=== PATIENT | male | born 1950 | race Caucasian/White ===

== ENCOUNTER 2021-12-31 01:18 | Inpatient (IN) | payer BC ==
[~2021-12-31] VITALS: Ht 165.1 cm; Wt 66.7 kg
[2021-12-31] MEDS ORDERED: PROCHLORPERAZINE EDISYLATE 10 MG/2 ML VIAL IVP ONE (04:00)
[2021-12-31] MEDS ORDERED: NACL 0.9% 1,000 ML IV ONE ×2 (04:00→05:30)
[2021-12-31] MEDS ORDERED: MORPHINE 2 MG/ML INJ. SYRINGE IVP ONE (04:00)
--- NOTE | 2021-12-31 04:20 | NUR ---
Patient wheeled to bed 7 for evaluation and treatment
[2021-12-31 04:47] LABS: HEMOGLOBIN 10.4 g/dL (14.0-18.0); MEAN CORPUSCULAR HEMOGLOBIN 30 pg (27-31); MEAN CORPUSCULAR HGB CONC 35 % (32-36); MEAN CORPUSCULAR VOLUME 85 fL (79.0-98.0); RED BLOOD CELL COUNT(AUTO) 3.51 MIL/uL (4.2-6.2); RED CELL DISTRIBUTION WIDTH 17.8 % (9.0-15.0)
[2021-12-31 05:07] LABS: CALCIUM 7.2 mg/dL (8.4-11.0); CREATININE 1.53 mg/dL (0.55-1.30)
[2021-12-31 05:12] LABS: ALBUMIN 2.5 g/dL (3.4-4.8); TOTAL BILIRUBIN 2.4 mg/dL (0.0-1.0)
[2021-12-31 05:25] LABS: POTASSIUM 2.5 mmol/L (3.5-5.1)
[2021-12-31 05:27] LABS: PLATELET COUNT (AUTO) 36 K/uL (130-430); WHITE BLOOD COUNT (AUTO) 1.8 K/uL (4.8-10.8)
[2021-12-31] MEDS ORDERED: POTASSIUM CHLORIDE 20 MEQ TAB.PRT.SR PO ONE (05:30)
[2021-12-31] MEDS ORDERED: POTASSIUM CHLORIDE 10 MEQ in NACL 0.9% 1,000 ML IV SCH ×7 (05:30→07:15)
--- NOTE | 2021-12-31 05:30 | NUR ---
IV ACCESS PLACED LT FA G20, DUE PAIN MEDS AND IV COMPAZINE GIVEN N/S 1L BOLUS RUNNING.
--- NOTE | 2021-12-31 05:45 | NUR ---
0545 CRITICAL LAB HYPONATREMIA AND HYPOKALEMIA PANCYTOPENIA MD AWARE DUE ORDERS GIVEN PENDING IV K-RIDER,AFTER NS BOLUS.
[2021-12-31] MEDS ORDERED: metroNIDAZOLE 500 mg/NS 100 ML IV ONE (06:30)
[2021-12-31] MEDS ORDERED: cefTRIAXone 2 GM VIAL ONE (06:45)
--- NOTE | 2021-12-31 06:50 | NUR ---
IVPB ROCEPHIN RUNNING AND NS/1L IV BOLUS
[2021-12-31 07:25] LABS: BILIRUBIN,URINE NEGATIVE (NEGATIVE); BLOOD, URINE 3+ (NEGATIVE); CLARITY/URINE CLEAR (CLEAR); COLOR,URINE YELLOW (YELLOW); GLUCOSE,URINE NEGATIVE (NEGATIVE); KETONES,URINE NEGATIVE (NEGATIVE); LEUKOCYTE ESTERASE ,URINE NEGATIVE (NEGATIVE); NITRITE, URINE NEGATIVE (NEGATIVE); PROTEIN URINE TRACE (NEGATIVE)
--- NOTE | 2021-12-31 07:30 | NUR ---
ASSUMED CARE OF PT AT THIS TIME
[2021-12-31 07:40] LABS: BASOPHILS % (AUTO) 0.5 % (0.0-2.0); EOSINOPHILS % (AUTO) 0.2 % (0.0-4.0); LYMPHOCYTES % (AUTO) 22.7 % (20.5-51.5); MONOCYTES % (AUTO) 70.6 % (1.7-9.3); NEUTROPHILS # (AUTO) 0.1 K/uL (1.8-7.7)
[2021-12-31 07:41] LABS: BAND % (MANUAL) 0 % (0-6); LYMPHOCYTES # (AUTO) 0.4 K/uL (1.0-5.5); LYMPHOCYTES % (MANUAL) 52 % (20-46); MONOCYTES # (AUTO) 1.3 K/uL (0.0-1.0)
[2021-12-31 07:42] LABS: ATYPICAL LYMPHOCYTES % 6 % (0-0); BASOPHILS % (MANUAL) 4 % (0-2); EOSINOPHILS % (MANUAL) 1 % (0-7); METAMYELOCYTES % 0 % (0-0); MONOCYTES % (MANUAL) 25 % (0-11); MYELOCYTES % 0 % (0-0); PROMYELOCYTES % 0 % (0-0)
[2021-12-31 08:09] LABS: BACTERIA,URINE None Seen /HPF (None Seen); HYALINE CASTS, URINE 0-10 /LPF (None Seen); WBC,URINE NONE SEEN /HPF (0-3)
--- NOTE | 2021-12-31 08:26 | NUR ---
PT RESTING COMFORTABLY. VSS. NO DISTRES NOTED. AWAITING TELE BED
--- NOTE | 2021-12-31 09:30 | NUR ---
AWAITING K ANGELITO TO COME FROM PHARMACY. PHARMACY MADE AWARE
[2021-12-31] MEDS: NACL 0.9% 1,000 ML IV SCH ×2 (09:42→22:28)
--- NOTE | 2021-12-31 10:12 | NUR ---
NS WITH 10MEQ K STARTED AT 100ML/HR. MAINTENANCE FLUIDS HELD AT THIS TIME.
--- NOTE | 2021-12-31 10:31 | NUR ---
NO CHANGE IN CONDITION. VSS. RESP EVEN AND UNLABORED. C/O LOWER BACK PAIN 5/10 (CHRONIC). REPOSITIONED FOR COMFORT. AWAITING TELE BED. WILL CONT TO MONITOR
[2021-12-31] MEDS ORDERED: LORazepam 2 MG/ML VIAL IVP PRN (11:00)
[2021-12-31] MEDS ORDERED: BANANA BAG 1 EA, FOLIC ACID 1 MG, THIAMINE HCL 100 MG, MAGNESIUM SULFATE 1 GM, MVI 10 M... IV SCH ×5 (11:00)
[2021-12-31] MEDS ORDERED: FOLIC ACID 1 MG, MVI 10 ML in NACL 0.9% 1,000 ML IV ONE (11:45)
[2021-12-31] MEDS ORDERED: THIAMINE HCL 100 MG, MAGNESIUM SULFATE 1 GM in NS 100 ML IV ONE (11:45)
--- NOTE | 2021-12-31 12:55 | NUR ---
PT RESTING. REPORTS LOWER BACK PAIN AND REQUESTING PAIN MEDICATION. HOME MEDS OBTAINED AND WILL ENTER IN CHART AND CALL ADMITTING MD. VSS. RESP EVEN AND UNLABORED. WILL CONT TO MONITOR
[2021-12-31] MEDS ORDERED: PRO40 PO (12:59)
--- NOTE | 2021-12-31 13:00 | NUR ---
AWAITING BANANA BAG FROM PHARMACY, PHARMACY AWARE
[2021-12-31] MEDS ORDERED: NOR10 PO (13:03)
[2021-12-31] MEDS ORDERED: ATEN50TA PO (13:03)
[2021-12-31] MEDS ORDERED: BACL10TA PO (13:03)
[2021-12-31] MEDS ORDERED: GABA-529 PO (13:03)
[2021-12-31] MEDS ORDERED: CARB100T13 PO (13:03)
--- NOTE | 2021-12-31 15:11 | NUR ---
PT IN BED RESTING. C/O CHRONIC LOWER BACK PAIN 02/27. CALL OUT FOR ADMITTING MD, AWAITING RETURN CALL. REPOSITIONED FOR COMFORT. VSS. RESP EVEN AND UNLABORED. AWAITING TELE BED. WILL CONT TO MERCEDES
[2021-12-31] MEDS: metroNIDAZOLE 500 mg/NS 100 ML IV SCH (15:47)
[2021-12-31] MEDS: chlordiazePOXIDE HCL 25 MG CAPSULE PO SCH ×2 (15:52→22:25)
--- NOTE | 2021-12-31 17:35 | NUR ---
PT RESTING COMFORTABLY. AT BEDSIDE. NO DISTRESS NOTED. RESP EVEN AND UNLABORED. AWAITING TELE BED. WILL CONT TO MONITOR
[2021-12-31] MEDS ORDERED: cefTRIAXone 1 GM VIAL ONE (22:22)
[2021-12-31] MEDS: cefTRIAXone 1 GM in D5W 50 ML IV SCH (22:25)
--- NOTE | 2021-12-31 23:55 | NUR ---
NOTES; CALLED DR. TORRES -called and notified Dr. Torres regarding pt fell couple times recently on 12/31 & 12/30 on rt hip and left leg pain 9/10 redness and (only pain upon activity on rt elbow redness) noted, asked for pain mgmt. MD ordered Tylenol 650mg po q 4 hrs prn for control pain and no CXR for right hip, rt elbow, or rt leg per md. Informed MD that requested Martinez bc her spouse is in pain upon activity. No martinez per md. IVF D5 1/2NS @ 100ml/hr and K-Bonifacio 40mEq x1 and cardiac diet per .
[2022-01-01] VITALS (7 sets, daily range): BP systolic 107–131
[2022-01-01] MEDS: D5/0.45 NS 1,000 ML IV SCH ×2 (00:23→12:58)
--- NOTE | 2022-01-01 01:00 | NUR ---
ADMISSION NOTES; -Arrived from ER dept via a gurney to Room 124-A, inpt telemetry dx electrolyte imbalance. Pt is a/ox 4, weakness noted. Pt fell recently on 12/31/21. Rt side of body (rt elbow 3/10, (rt hip, and rt legs pain 9/10 sharp)- redness but intact noted. Saline rocio on rt hand #22 and left f/a #20 both patent,no s/s any infiltration noted. Spouse is at bedside. VS 98.1, 18, 131/67, 98, t3pkt=35% r/a. Generalized weakness noted. Urinal at bedside. Discussed poc,all safety measures, pain mgmt, not get out of bed to use call light for assistance, pt and spouse verbalized understanding. Pt is a/o x4 and able to use call light. Fall precaution in place. Side rails x2. Call light w/in reach. Cont to monitor pt.
--- NOTE | 2022-01-01 01:25 | NUR ---
NOTES; TOOK ALL BELONGINGS HOME.
[2022-01-01] MEDS ORDERED: metroNIDAZOLE 500 mg/NS 200 ML IV ONE (01:45)
--- NOTE | 2022-01-01 01:58 | NUR ---
NOTES; K-RIDER BAG LEAKED, REPLACED NEW BAG OF K-RIDER 40MEG KCL BAG
[2022-01-01] MEDS ORDERED: KCL 40 mEq in 100 mL (PREMIX) 100 ML IV ONE ×3 (01:59→11:30)
[2022-01-01] MEDS: metroNIDAZOLE 500 mg/NS 100 ML IV SCH ×3 (02:03→17:42)
--- NOTE | 2022-01-01 02:05 | NUR ---
NOTES; -INFUSING FLAGY 500MG IVPB LATE D/T INFUSING K-RIDER
--- NOTE | 2022-01-01 02:05 | NUR ---
ROUNDS; -Pt is asleep. No s/s chest pain,sob,pain,or any acute distress noted. IVF infusing well no s/s any infiltration and K-rider infusing. All safety measure in place. Call light w/in reach. Cont to monitor pt.
--- NOTE | 2022-01-01 04:43 | NUR ---
CONSULTATION PAGED/CALLED Reason for Consultation: DIARRHEA Person Who was Notified: JACQUI Consulting Physician: JOAQUIN MORA IS MINILAB OPERATOR System Support Technician Specialty: Ordering Physician: MALORIE
--- NOTE | 2022-01-01 05:07 | NUR ---
CONSULTATION PAGED/CALLED Reason for Consultation: PANCYTOPENIA Person Who was Notified: JOSSUE Consulting Physician: WENDY Surfboard Maker Specialty: Ordering Physician: MALORIE
--- NOTE | 2022-01-01 05:09 | NUR ---
ROUNDS; -Pt awoke, felt pain upon activity. Pt is wet, changed gown, linen, and sheet, now pt is cleaned and dry. Applied diaper upon pt's request. Pt is eating pudding now. IVF D5 1/2 NS @ 100ml/hr infusing well, no s/s any infiltration on rt hand noted. All safety measure in place. Call light w/in reach. Cont to monitor pt.
[2022-01-01 06:21] LABS: BASOPHILS % (AUTO) 0.9 % (0.0-2.0); EOSINOPHILS % (AUTO) 0.1 % (0.0-4.0); HEMATOCRIT 26.3 % (36-54); HEMOGLOBIN 9.5 g/dL (14.0-18.0); LYMPHOCYTES # (AUTO) 0.7 K/uL (1.0-5.5); LYMPHOCYTES % (AUTO) 48.3 % (20.5-51.5); MEAN CORPUSCULAR HEMOGLOBIN 31 pg (27-31); MEAN CORPUSCULAR HGB CONC 36 % (32-36); MEAN CORPUSCULAR VOLUME 87 fL (79.0-98.0); MONOCYTES # (AUTO) 0.7 K/uL (0.0-1.0); MONOCYTES % (AUTO) 48.3 % (1.7-9.3); RED BLOOD CELL COUNT(AUTO) 3.04 MIL/uL (4.2-6.2); RED CELL DISTRIBUTION WIDTH 17.5 % (9.0-15.0)
--- NOTE | 2022-01-01 06:34 | NUR ---
CLOSING NOTES; -Pt is asleep. NO s/s any pain,sob,or any acute distress noted. IV sites both rt hand and left f/a patent drsg cdi. Fall precaution in place. Bed alarmed, Side rails x2. Call light w/in reach. Will endorse to next nurse to cont care.
[2022-01-01 07:41] LABS: ALBUMIN 1.9 g/dL (3.4-4.8); CREATININE 0.57 mg/dL (0.55-1.30); TOTAL BILIRUBIN 1.9 mg/dL (0.0-1.0)
[2022-01-01 07:47] LABS: CALCIUM 6.7 mg/dL (8.4-11.0); POTASSIUM 2.9 mmol/L (3.5-5.1)
[2022-01-01 08:29] LABS: PLATELET COUNT (AUTO) 28 K/uL (130-430); WHITE BLOOD COUNT (AUTO) 1.4 K/uL (4.8-10.8)
--- NOTE | 2022-01-01 09:00 | NUR ---
CRITICAL LAB: from Laboratory called with critical lab value K level 2.9,Ca 6.7,WBC 1.4,platlet 28. neutro 0.0,Medical record number and patient name verified. Read back of values done. notified of value. lab orders given at this time.
[2022-01-01] MEDS: chlordiazePOXIDE HCL 25 MG CAPSULE PO SCH ×3 (10:03→20:44)
[2022-01-01] MEDS ORDERED: CALCIUM GLUCONATE 1 GM/10 ML VIAL IVP ONE (10:45)
[2022-01-01] MEDS ORDERED: CALCIUM GLUCONATE 1 GM in NS 100 ML IV ONE (11:00)
[2022-01-01 11:54] LABS: NEUTROPHILS % (AUTO) 2.4 % (40.0-70.0)
[2022-01-01] MEDS ORDERED: FOLIC ACID 1 MG, MVI 10 ML in NACL 0.9% 1,000 ML IV SCH (12:00)
[2022-01-01] MEDS ORDERED: THIAMINE HCL 100 MG, MAGNESIUM SULFATE 1 GM in NS 100 ML IV SCH (12:00)
--- NOTE | 2022-01-01 19:30 | NUR ---
PM ASSESSMENT; -Pt is a/ox4, resting in bed. Pt denies any chest pain,pain,sob,or any acute distress. IV site on rt hand #22 and left f/a #20 both patent,no s/s any infiltration noted. Generalized weakness noted. Urinal at bedside. Discussed poc,all safety measures, pain mgmt, not get out of bed to use call light for assistance, pt verbalized understanding. Pt is a/o x4 and able to use call light. Fall precaution in place. Side rails x2. Call light w/in reach. Cont to monitor pt.
[2022-01-01] MEDS: ACETAMINOPHEN 325 MG TABLET PO PRN (20:44)
[2022-01-01 20:52] LABS: BILIRUBIN,DIRECT 1.3 mg/dL (0.0-0.3); TOTAL BILIRUBIN 1.9 mg/dL (0.0-1.0); URIC ACID 1.4 mg/dL (2.4-7.0)
[2022-01-01] MEDS: cefTRIAXone 1 GM in D5W 50 ML IV SCH (22:31)
--- NOTE | 2022-01-01 22:31 | NUR ---
ROUNDS; -Pt is asleep. No s/s chest pain,sob,pain,or any acute distress noted. Infusing Rocephin ivpb late d/t not available at that time. Banana bag is still infusing. Both IV site patent no s/s any infiltration noted. Bed alarmed. Side rails x3, All safety measure in place. Call light w/in reach. Cont to monitor pt.
[2022-01-02] MEDS ORDERED: DIPHENOXYLATE HCL/ATROP SULF 2.5 MG TAB PO ONE (00:15)
[2022-01-02 00:45] VITALS: BP_SYST 110
[2022-01-02] MEDS: D5/0.45 NS 1,000 ML IV SCH ×2 (00:52→09:41)
--- NOTE | 2022-01-02 00:52 | NUR ---
ROUNDS; -Pt awakes, and gave Lomotil po upon pt's request. Pt didn't have diarrhea but wants to have antidiarrhea med to prevent diarrhea. Pt denies any pain,sob,or any acute distress. Infusing D5 1/2NS @ 100ml/hr. Banana bag is completed. Both IV site patent no s/s any infiltration noted. Bed alarmed. Side rails x3, All safety measure in place. Call light w/in reach. Cont to monitor pt.
[2022-01-02] MEDS: metroNIDAZOLE 500 mg/NS 100 ML IV SCH ×3 (02:07→17:52)
--- NOTE | 2022-01-02 02:07 | NUR ---
ROUNDS; -Pt is resting in bed. Pt denies any pain,sob,or any acute distress. Infusing D5 1/2NS @ 100ml/hr. Now, infusing Flagy IVPB. Both IV site patent no s/s any infiltration noted. Bed alarmed. Side rails x3, All safety measure in place. Call light w/in reach. Cont to monitor pt.
--- NOTE | 2022-01-02 04:12 | NUR ---
ROUNDS; -Pt awakes,eating some snack. Pt denies any pain,sob,or any acute distress. Infusing D5 1/2NS @ 100ml/hr. Bed alarmed. Side rails x3, All safety measure in place. Call light w/in reach. Cont to monitor pt.
--- NOTE | 2022-01-02 06:11 | NUR ---
ROUNDS; -Pt awakes, playing with cellphone. Pt denies any pain,sob,or any acute distress. Infusing D5 1/2NS @ 100ml/hr. Bed alarmed. Side rails x3, All safety measure in place. Call light w/in reach. Cont to monitor pt. Addendum: 01/02/22 at 0614 by [place] brass molder CORRECTION; Pt is asleep; not playing with cellphone.
[2022-01-02 06:24] LABS: HEMATOCRIT 27.1 % (36-54); HEMOGLOBIN 9.8 g/dL (14.0-18.0); MEAN CORPUSCULAR HEMOGLOBIN 32 pg (27-31); MEAN CORPUSCULAR HGB CONC 36 % (32-36); MEAN CORPUSCULAR VOLUME 89 fL (79.0-98.0); RED BLOOD CELL COUNT(AUTO) 3.05 MIL/uL (4.2-6.2); RETICULOCYTE COUNT 0.6 % (0.5-1.5)
--- NOTE | 2022-01-02 06:37 | NUR ---
CLOSING NOTES; Pt is resting in bed. Pt denies any chest pain,pain,sob,or any acute distress. IV site on rt hand #22 and left f/a #20 both patent,no s/s any infiltration noted. Urinal at bedside. IVF D5 1/2NS @100ml/hr infusing well. Fall precaution in place. Side rails x2. Call light w/in reach. Pt is cleaned and dry. Pt had x1 small loose bowel movt mixed urine. Will endorse to next nurse to cont care and to collect stool for c-diff and stool cx.
[2022-01-02 07:05] LABS: ALBUMIN 1.7 g/dL (3.4-4.8); CREATININE 0.69 mg/dL (0.55-1.30); TOTAL BILIRUBIN 1.3 mg/dL (0.0-1.0)
[2022-01-02 07:40] LABS: TOTAL IRON BIND. CAPACITY 76 ug/dL (250-450)
[2022-01-02 08:00] VITALS: BP_SYST 129
[2022-01-02 08:01] LABS: PLATELET COUNT (AUTO) 30 K/uL (130-430); WHITE BLOOD COUNT (AUTO) 1.7 K/uL (4.8-10.8)
--- NOTE | 2022-01-02 08:30 | NUR ---
CRITICAL LAB: from Laboratory called with critical lab value WBC 1.7,PLATELET 30. Medical record number and patient name verified. Read back of values done. notified of value. NEUTROPENIC ISOLATION orders given at this time.
[2022-01-02 08:36] LABS: POTASSIUM 2.5 mmol/L (3.5-5.1)
[2022-01-02 08:37] LABS: CALCIUM 6.7 mg/dL (8.4-11.0)
--- NOTE | 2022-01-02 09:00 | NUR ---
CRITICAL LAB: from Laboratory called with critical lab value potassium 2.5,Calcium 6.7. Medical record number and patient name verified. Read back of values done. notified of value. IV meds K rider 60meq orders given at this time.
[2022-01-02] MEDS ORDERED: KCL 20 mEq in 100 mL (PREMIX) 100 ML IV ONE (09:15)
[2022-01-02] MEDS ORDERED: KCL 40 mEq in 100 mL (PREMIX) 100 ML IV ONE (09:15)
[2022-01-02] MEDS: chlordiazePOXIDE HCL 25 MG CAPSULE PO SCH ×3 (09:40→22:39)
[2022-01-02] MEDS: POTASSIUM CHLORIDE IV SCH ×3 (09:49→17:52)
[2022-01-02] MEDS: [UNRECOGNIZED DRUG - OTHER] IV SCH ×3 (09:49→17:52)
--- NOTE | 2022-01-02 10:07 | NUR ---
CONSULTATION PAGED REASON FOR CONSULTATION:SEPSIS WAS CONSULT CALLED?Y -PERSON WHO WAS NOTIFIED:HARSHAL CONSULTING PHYSICIAN:LILO BOOGIE PHARMACOVIGILANCE SCIENTIST SPECIALTY:ID PHARMACOVIGILANCE SCIENTIST PHONE NUMBER:[phone] REQUESTING PHYSICIAN:KAILASH RAI
--- NOTE | 2022-01-02 10:15 | NUR ---
CONSULTATION PAGED REASON FOR CONSULTATION:DIARRHEA WAS CONSULT CALLED?Y -PERSON WHO WAS NOTIFIED:SARAH CONSULTING PHYSICIAN:PEREZ GALVEZ TRANSIT MANAGER SPECIALTY:GI TRANSIT MANAGER PHONE NUMBER:[phone] REQUESTING PHYSICIAN:JOSH RAI
[2022-01-02] MEDS: ACETAMINOPHEN 325 MG TABLET PO PRN ×2 (11:22→22:42)
[2022-01-02] MEDS: THIAMINE HCL 100 MG, MAGNESIUM SULFATE 1 GM in NS 100 ML IV SCH (12:00)
[2022-01-02] MEDS: FOLIC ACID 1 MG, MVI 10 ML in NACL 0.9% 1,000 ML IV SCH (12:00)
[2022-01-02 12:26] VITALS: BP_SYST 121
[2022-01-02 13:36] LABS: ATYPICAL LYMPHOCYTES % 2 % (0-0); BASOPHILS % (MANUAL) 0 % (0-2); EOSINOPHILS % (MANUAL) 0 % (0-7); LYMPHOCYTES % (MANUAL) 78 % (20-46); MONOCYTES % (MANUAL) 6 % (0-11)
[2022-01-02 16:45] VITALS: BP_SYST 102
--- NOTE | 2022-01-02 16:53 | NUR ---
Dietitian Recommendations * Cardiac diet, Ensure Enlive TID * Encourage increase PO intakes LP, RD Please refer to Nutrition Assessment for details. Addendum: 01/02/22 at [address] Amended: Links added.
--- NOTE | 2022-01-02 16:57 | NUR ---
INFORMED CHANELL VOGT THAT THE TELE BOX BATTERY IS SINCE 1627 AND NEEDS TO BE REPLACED
--- NOTE | 2022-01-02 18:36 | NUR ---
PT AWAKE,ALERT,TEMP ELEVATED TO 103 AT 12NOON,ID CONSULT CAME AND SEEN PT AND NOTIFIED OF PT FEVER.GIVE TYLENOL 650MG PO PRN ORDER FOR FEVER,CONTINUE CURRENT IV ANTIBIOTIC,TEMP DECREASED TO 98.5,K LEVEL 2.5,GIVE K RIDER 60MEQ PER DR ORDER.IV SITE IN LEFT 20 G REMAINS PATENT AND INTACT,POOR APPETITE,OFFERED JELLOS UPON PT REQUESTS. NEEDS ATTENDED,CALL LIGHT & PERSONAL ITEMS WITHIN PT REACH,SAFETY MAINTAINED CONTINUE TO MONITOR PT
[2022-01-02] MEDS ORDERED: cefTRIAXone 1 GM VIAL ONE (21:03)
[2022-01-02] MEDS: cefTRIAXone 1 GM in D5W 50 ML IV SCH (22:45)
[2022-01-03] VITALS (7 sets, daily range): BP systolic 90–118
[2022-01-03] MEDS: D5/0.45 NS 1,000 ML IV SCH ×3 (02:00→21:06)
[2022-01-03] MEDS: metroNIDAZOLE 500 mg/NS 100 ML IV SCH ×3 (02:53→20:55)
[2022-01-03] MEDS: ACETAMINOPHEN 325 MG TABLET PO PRN (03:08)
[2022-01-03 07:07] LABS: FOLATE (FOLIC ACID) 15.9 ng/mL (>3.0)
[2022-01-03] MEDS: chlordiazePOXIDE HCL 25 MG CAPSULE PO SCH ×3 (09:16→20:57)
[2022-01-03 09:43] LABS: HEMATOCRIT 27.4 % (36-54); MEAN CORPUSCULAR HEMOGLOBIN 36 pg (27-31); MEAN CORPUSCULAR HGB CONC 37 % (32-36); MEAN CORPUSCULAR VOLUME 97 fL (79.0-98.0); RED BLOOD CELL COUNT(AUTO) 2.82 MIL/uL (4.2-6.2)
[2022-01-03 10:17] LABS: CREATININE 0.73 mg/dL (0.55-1.30)
[2022-01-03 10:25] LABS: PLATELET COUNT (AUTO) 27 K/uL (130-430); WHITE BLOOD COUNT (AUTO) 1.9 K/uL (4.8-10.8)
[2022-01-03 10:30] LABS: POTASSIUM 2.9 mmol/L (3.5-5.1)
[2022-01-03 10:31] LABS: CALCIUM 6.6 mg/dL (8.4-11.0)
[2022-01-03 10:47] LABS: INR 1.4 (0.80-1.20); PROTHROMBIN TIME 14.7 SECS (9.5-12.5)
--- NOTE | 2022-01-03 11:18 | NUR ---
Called and spoke to Dr Atkins. Updated MD with critical labs WBC 1.9, platelet 27, K 2.9 and calcium 6.6. Orders noted and carried out.
[2022-01-03] MEDS ORDERED: KCL 40 mEq in 100 mL (PREMIX) 100 ML IV ONE (11:30)
[2022-01-03] MEDS: FOLIC ACID 1 MG, MVI 10 ML in NACL 0.9% 1,000 ML IV SCH (12:00)
[2022-01-03] MEDS: THIAMINE HCL 100 MG, MAGNESIUM SULFATE 1 GM in NS 100 ML IV SCH (12:00)
[2022-01-03] MEDS: POTASSIUM CHLORIDE 20 mEq in 100 mL (PREMIX) 100 ML x 2 doses IV SCH ×2 (12:30→20:56)
[2022-01-03 13:54] LABS: ATYPICAL LYMPHOCYTES % 6 % (0-0); BAND % (MANUAL) 1 % (0-6); BASOPHILS % (MANUAL) 0 % (0-2); EOSINOPHILS % (MANUAL) 0 % (0-7); LYMPHOCYTES % (MANUAL) 72 % (20-46); MONOCYTES % (MANUAL) 8 % (0-11)
--- NOTE | 2022-01-03 19:10 | NUR ---
OPENING NOTES RECEIVED PATIENT RESTING IN BED, FAMILY AT BEDSIDE. NO ACUTE DISTRESS NOTED. CALL LIGHT WITHIN REACH, BED ALARM ON, BED AT LOWEST POSITION, BED LOCKED. RECEIVED REPORT THAT PATIENT IS TO HAVE 2ND K-RIDER TO BE GIVEN AND THEN A BLOOD DRAW TO BE DONE TO RE-CHECK POTASSIUM AND IF UNDER 3.5, ANOTHER K-RIDER TO BE PROVIDED. PATIENT DEMONSTRATES PROPER CALL LIGHT USAGE. FALL, RESPIRATORY, ASPIRATION, AND REVERSE ISOLATION PRECAUTIONS IN PLACE. WILL CONTINUE TO MONITOR.
[2022-01-03] MEDS ORDERED: KCL 20 mEq in D5W 1000 mL 1,000 ML IV SCH (20:00)
[2022-01-03] MEDS ORDERED: KCL 20 mEq in 100 mL (PREMIX) 100 ML IV ONE (20:47)
[2022-01-03] MEDS: cefTRIAXone 1 GM in D5W 50 ML IV SCH (23:43)
[2022-01-04 00:10] VITALS: BP_SYST 124
[2022-01-04] MEDS: metroNIDAZOLE 500 mg/NS 100 ML IV SCH ×3 (01:58→18:12)
[2022-01-04 03:39] LABS: HEMATOCRIT 28.1 % (36-54); HEMOGLOBIN 10.3 g/dL (14.0-18.0); WHITE BLOOD COUNT (AUTO) 2.5 K/uL (4.8-10.8)
[2022-01-04] MEDS ORDERED: KCL 20 mEq in 100 mL (PREMIX) 100 ML IV PRN (03:45)
[2022-01-04 03:49] LABS: MEAN CORPUSCULAR HEMOGLOBIN 34 pg (27-31); MEAN CORPUSCULAR HGB CONC 37 % (32-36); MEAN CORPUSCULAR VOLUME 93 fL (79.0-98.0); RED BLOOD CELL COUNT(AUTO) 3.03 MIL/uL (4.2-6.2); RED CELL DISTRIBUTION WIDTH 18.3 % (9.0-15.0)
[2022-01-04 04:01] LABS: PLATELET COUNT (AUTO) 28 K/uL (130-430)
[2022-01-04 05:08] LABS: LYMPHOCYTES % (MANUAL) 83 % (20-46)
[2022-01-04 05:09] LABS: ATYPICAL LYMPHOCYTES % 6 % (0-0); BAND % (MANUAL) 0 % (0-6); BASOPHILS % (MANUAL) 0 % (0-2); EOSINOPHILS % (MANUAL) 0 % (0-7); MONOCYTES % (MANUAL) 7 % (0-11)
--- NOTE | 2022-01-04 05:30 | NUR ---
SPOKE TO DR. ESPANA, CRITICAL VALUE OF 28 FOR PLATELET AND POTASSIUM OF 3.6. RECEIVED NEW ORDERS OF 40 MEQ KDUR. WILL FOLLOW THROUGH.
--- NOTE | 2022-01-04 05:47 | NUR ---
SPOKE TO DR. NGYUEN AND UPDATED ON CRITICAL VALUE OF PLATELET 28 AND POTASSIUM OF 3.6. NO NEW ORDERS RECEIVED, STATES NO INTERVENTIONS AT THIS TIME AND WILL WATCH PLATELETS. UPDATED THAT DR. ESPANA ORDERED KDUR FOR THE PATIENT.
[2022-01-04] MEDS ORDERED: POTASSIUM CHLORIDE 20 MEQ TAB.PRT.SR PO ONE (07:00)
--- NOTE | 2022-01-04 07:30 | NUR ---
RECEIVED PT FROM CHANELL NORMAN. ASSUMED ALL CARE.
[2022-01-04 08:00] VITALS: BP_SYST 119
[2022-01-04] MEDS: D5/0.45 NS 1,000 ML IV SCH ×2 (08:00→23:27)
[2022-01-04] MEDS: chlordiazePOXIDE HCL 25 MG CAPSULE PO SCH ×2 (09:40→21:00)
[2022-01-04] MEDS ORDERED: ALBUTEROL SULFATE 0.083% 2.5 MG/3 ML VIAL.NEB INH PRN (10:00)
[2022-01-04] MEDS ORDERED: IPRATROPIUM BROM 0.5 MG/2.5 ML VIAL.NEB (ATROVENT) INH PRN (10:00)
--- NOTE | 2022-01-04 10:00 | NUR ---
SCHEDULED MEDS GIVEN AND TOLERATED WELL. FAMILY AT BEDSIDE. CALL LIGHT WITHIN REACH. SEIZURE PRECAUTIONS PLACED.
--- NOTE | 2022-01-04 10:04 | NUR ---
CONSULTATION PAGED/CALLED Reason for Consultation: [] SOB Person Who was Notified: [] ROZINA Consulting Physician: [] DR YAÑEZ Chemical Dependency Therapist Specialty: [] PULMO Ordering Physician: [] DR ESPANA
[2022-01-04] MEDS: IPRATROPIUM BROM 0.5 MG/2.5 ML VIAL.NEB (ATROVENT) INH SCH ×5 (11:00→21:43)
[2022-01-04] MEDS: ALBUTEROL SULFATE 0.083% 2.5 MG/3 ML VIAL.NEB INH SCH ×6 (11:00→21:42)
[2022-01-04] MEDS: FOLIC ACID 1 MG, MVI 10 ML in NACL 0.9% 1,000 ML IV SCH (11:53)
[2022-01-04] MEDS: THIAMINE HCL 100 MG, MAGNESIUM SULFATE 1 GM in NS 100 ML IV SCH (11:54)
--- NOTE | 2022-01-04 12:00 | NUR ---
PT TAUGHT TO TURN AND REPOSITION IN BED Q 2 HOURS FOR SKIN MAINTENANCE, COUGH AND DEEP BREATH HOURLY TO PREVENT PNEUMONIA. PT DEMONSTRATED UNDERSTANDING. FAMILY AT BEDSIDE, CALL LIGHT WITHIN REACH.
[2022-01-04 12:54] VITALS: BP_SYST 115
--- NOTE | 2022-01-04 14:50 | NUR ---
LATE ENTRY: ONCO/GRAHAM MD DR NGUYEN ASKED ME TO F/U THE RESULTS OF THE FLOW CYTOMETRY WITH MICROBIOLOGY. PER RYLEE THE BUSINESS SYSTEMS LEAD, RESULT IS STILL PENDING.
[2022-01-04 14:52] VITALS: BP_SYST 115
[2022-01-04 15:03] LABS: BLASTS, MANUAL % 10 % (0-0)
[2022-01-04 16:48] VITALS: BP_SYST 117
--- NOTE | 2022-01-04 17:13 | NUR ---
RECEIVED ORDER FROM DR. ESPANA, PT S/P FALL AT HOME BEFORE ADMISSION WITH C/O PAIN, RECEIVED ORDER FOR RIGHT SHOULDER, ELBOW, HIP, KNEE X-RAY STAT. ORDER CARRIED OUT. PT MADE AWARE.
[2022-01-04] MEDS: ACETAMINOPHEN 325 MG TABLET PO PRN (18:12)
--- NOTE | 2022-01-04 18:14 | NUR ---
PT FLUSHED, TEMP 100.7F. TYLENOL 650MG PO GIVEN, COOLING MEASURES IN PLACE. SCHEDULED MED GIVEN.
--- NOTE | 2022-01-04 19:29 | NUR ---
ENDORSED ALL CARE TO CHANELL MAST. ALL QUESTIONS AND CONCERNS ADDRESSED.
[2022-01-04 20:00] VITALS: BP_SYST 105; BP_SYST 88
--- NOTE | 2022-01-04 22:00 | NUR ---
Noted that the patient has 88/56 blood pressure on the left arm and 81/49 on the right arm. He also had a temp of 101.1 it was too early for next due Tylenol. ice packs were placed on him and blankets. heart rate started at 149 bpm slowly decreased over 30min to 91bpm. Paging the doctor for orders
--- NOTE | 2022-01-04 22:50 | NUR ---
page doctor Milly s/w Zeynep
--- NOTE | 2022-01-04 23:30 | NUR ---
page Dr. Atkins s/w Nasreen No call back
[2022-01-05] MEDS: cefTRIAXone 1 GM in D5W 50 ML IV SCH ×2 (00:09→22:22)
[2022-01-05] MEDS: ACETAMINOPHEN 325 MG TABLET PO PRN ×2 (00:09→21:48)
--- NOTE | 2022-01-05 00:15 | NUR ---
Page Dr. Atkins S/W with Hollie No call back
[2022-01-05 00:39] VITALS: BP_SYST 83
--- NOTE | 2022-01-05 01:06 | NUR ---
Ling Atkins s/w Franklin
[2022-01-05] MEDS: metroNIDAZOLE 500 mg/NS 100 ML IV SCH ×3 (03:29→17:06)
--- NOTE | 2022-01-05 06:30 | NUR ---
patient monitored No call back was received from the doctor. patient was monitored closely with BP take every 30min. patients legs were elevated above the heart. over time his bp increased
[2022-01-05 07:00] VITALS: BP_SYST 104
[2022-01-05] MEDS: ALBUTEROL SULFATE 0.083% 2.5 MG/3 ML VIAL.NEB INH SCH ×4 (08:02→19:51)
[2022-01-05] MEDS: IPRATROPIUM BROM 0.5 MG/2.5 ML VIAL.NEB (ATROVENT) INH SCH ×4 (08:03→19:51)
[2022-01-05] MEDS: chlordiazePOXIDE HCL 25 MG CAPSULE PO SCH ×2 (08:59→21:47)
--- NOTE | 2022-01-05 12:11 | NUR ---
Nutrition F/U Admitting Diagnosis Electrolyte imbalance Reviewed Pertinent Medical/Surgical Hx Medical Record Patient Medical History Comment: PMH: alcohol-induced liver Dz, alcohol abuse, and HTN per physician notes Pt also found w/ diarrhea, hyponatremia, ethanol dependence, and pancytopenia per physician notes SARS-CoV-2 Ag (Rapid) Negative 12/31 Subjective Information: RD bedside visit deferred d/t isolation precautions. Per EMR review, pt remains on RA; PO intakes have slightly improved, though still low; LBM x2 01/05; Jesus scale: 12, no PIs; no diarrhea yesterday, seemingly improving per physician notes. Current diet remains appropriate. Maximum encouragement warranted to optimize nutritional status. Current Diet Order/Nutrition Support: Cardiac, Ensure Enlive TID x3 days Patient/Significant Other Unable To Verbalize Education Provided Not Indicated Pertinent Medications/Labs: Reviewed Height (Feet) 5 feet Height (Inches) 5.00 inches Weight (Pounds) 147 pounds -- stable since 01/02 Patient Weight 66.678 kg Body Mass Index 24.46 kg/m2 %IBW 108 [place]/Adjusted Body Weight 136#/61.8 kg Weight Status Underweight Food Allergies No Current % PO 35% average x5 meal records Estimated Energy Expenditure (kcals/day) 0- (25-30 kcal/kg CBW d/t GERIAT maintenance) Estimated Protein Required (g/day) 80 (1.2 gm/kg CBW d/t GERIAT maintenance) Estimated Fluid Required (l/day) 2-2.3 (30-35 ml/kg CKB d/t risk for dehydration) Problem/Etiology/Signs/Symptoms Suboptimal nutritional intakes R/T suspected lack of appetite AEB negligible PO intakes records. *Slight improvement Expected Outcomes/Goals - Monitor appetite and PO intakes w/ goal of pt meeting >50% of estimated nutritional needs, labs trending WNL, normal GI function, and skin integrity/wt maintenance Dietitian Recommendations * Continue Cardiac diet, Ensure Enlive TID * Encourage increase PO intakes Follow Up Moderate Risk: F/U in 3-5 days
--- NOTE | 2022-01-05 12:14 | NUR ---
Dietitian Recommendations * Continue Cardiac diet, Ensure Enlive TID * Encourage increase PO intakes LP, RD Please refer to Nutrition F/U for details.
[2022-01-05 12:55] VITALS: BP_SYST 99
[2022-01-05] MEDS: THIAMINE HCL 100 MG, MAGNESIUM SULFATE 1 GM in NS 100 ML IV SCH (14:29)
[2022-01-05] MEDS: D5/0.45 NS 1,000 ML IV SCH (14:30)
[2022-01-05] MEDS: FOLIC ACID 1 MG, MVI 10 ML in NACL 0.9% 1,000 ML IV SCH (14:30)
[2022-01-05 16:00] VITALS: BP_SYST 101; BP_SYST 114
--- NOTE | 2022-01-05 17:54 | NUR ---
CONSULT: CARDIO TACHYCARDIA KAILA MILLAN [phone] S/W: ALEX
--- NOTE | 2022-01-05 18:23 | NUR ---
INFORMED RN JESSICA THAT PT'S HR IS 139. SHE SAID THAT HR OF 139 IS OK.
[2022-01-05] MEDS: LOPERAMIDE HCL 2 MG CAPSULE PO PRN ×2 (19:01→21:47)
[2022-01-05] MEDS: ATENOLOL 50 MG TABLET (TENORMIN) PO SCH (19:02)
[2022-01-05] MEDS: amLODIPine BESYLATE 10 MG TABLET PO SCH (19:02)
--- NOTE | 2022-01-05 19:27 | NUR ---
END SHIFT REPORT GIVEN TO KARLIE COUCH. THANK YOU
--- NOTE | 2022-01-05 19:45 | NUR ---
OPENING NOTE PT IS LYING IN BED WITH EYES CLOSED. NO APPARENT DISTRESS NOTED AT THIS TIME. PT STATED HES VERY TIRED. BED IS IN LOWEST POSITION WITH FALL AND SAFETY PRECAUTIONS IN PLACE. SEIZURE PRECAUTIONS IN PACE. IV FLUIDS RUNNING ORDERED
[2022-01-05 20:00] VITALS: BP_SYST 111
[2022-01-05] MEDS: GABAPENTIN 100 MG CAPSULE PO SCH (21:47)
[2022-01-05] MEDS: BACLOFEN 10 MG TABLET PO SCH (21:47)
--- NOTE | 2022-01-05 22:00 | NUR ---
pt TACHYPNEIC PTS RR IS 28, PT APPEARS TO NOT BE DOING WELL. BASES OF LUNGS DIMINISHED, UPPER LOBES ARE CLEAR WILL CONTINUE TO MONITOR PT
[2022-01-06] VITALS (7 sets, daily range): BP systolic 96–105
[2022-01-06] MEDS: metroNIDAZOLE 500 mg/NS 100 ML IV SCH ×3 (01:37→16:59)
[2022-01-06] MEDS ORDERED: ALENDRONATE SODIUM 10 MG TABLET PO SCH (06:00)
[2022-01-06] MEDS: LOPERAMIDE HCL 2 MG CAPSULE PO PRN ×2 (06:14→08:47)
[2022-01-06] MEDS: ALBUTEROL SULFATE 0.083% 2.5 MG/3 ML VIAL.NEB INH SCH ×5 (07:27→23:00)
[2022-01-06] MEDS: IPRATROPIUM BROM 0.5 MG/2.5 ML VIAL.NEB (ATROVENT) INH SCH ×5 (07:27→23:00)
[2022-01-06 08:41] LABS: ANION GAP 9 (5-15); CHLORIDE 97 mmol/L (98-107); CREATININE 0.71 mg/dL (0.55-1.30); GLUCOSE 109 mg/dL (70-99); POTASSIUM 3.6 mmol/L (3.5-5.1); SODIUM SERUM 125 mmol/L (136-145); UREA NITROGEN, BLOOD 17 mg/dL (8-21)
[2022-01-06] MEDS: chlordiazePOXIDE HCL 25 MG CAPSULE PO SCH ×2 (08:47→21:06)
[2022-01-06] MEDS: BACLOFEN 10 MG TABLET PO SCH ×3 (08:47→21:00)
[2022-01-06] MEDS: GABAPENTIN 100 MG CAPSULE PO SCH ×3 (08:47→21:00)
[2022-01-06] MEDS: amLODIPine BESYLATE 10 MG TABLET PO SCH (08:49)
[2022-01-06] MEDS: ATENOLOL 50 MG TABLET (TENORMIN) PO SCH (08:49)
[2022-01-06 09:09] LABS: HEMATOCRIT 26.7 % (36-54); HEMOGLOBIN 9.5 g/dL (14.0-18.0); MEAN CORPUSCULAR HEMOGLOBIN 33 pg (27-31); MEAN CORPUSCULAR HGB CONC 36 % (32-36); MEAN CORPUSCULAR VOLUME 93 fL (79.0-98.0); RED BLOOD CELL COUNT(AUTO) 2.88 MIL/uL (4.2-6.2); RED CELL DISTRIBUTION WIDTH 18.7 % (9.0-15.0); WHITE BLOOD COUNT (AUTO) 2.1 K/uL (4.8-10.8)
[2022-01-06] MEDS: D5/0.45 NS 1,000 ML IV SCH (09:14)
[2022-01-06 09:17] LABS: CALCIUM 6.7 mg/dL (8.4-11.0)
[2022-01-06] MEDS ORDERED: SPIRONOLACTONE 25 MG TABLET (ALDACTONE) PO ONE (10:15)
[2022-01-06] MEDS ORDERED: BISMUTH SUBSALICYLATE 240 ML BOTTLE PO PRN (10:30)
[2022-01-06 10:37] LABS: PLATELET COUNT (AUTO) 19 K/uL (130-430)
[2022-01-06] MEDS ORDERED: PANTOPRAZOLE SODIUM 40 MG TAB PO ONE (11:00)
[2022-01-06] MEDS: THIAMINE HCL 100 MG, MAGNESIUM SULFATE 1 GM in NS 100 ML IV SCH (11:41)
[2022-01-06] MEDS: FOLIC ACID 1 MG, MVI 10 ML in NACL 0.9% 1,000 ML IV SCH (11:48)
--- NOTE | 2022-01-06 14:24 | NUR ---
DR BARTLETT (DO) INFORMED AND AWARE ABOUT PT PLATELETS 19 AND THE REST OF AM LABS. THANK YOU
[2022-01-06 15:04] LABS: LYMPHOCYTES # (AUTO) 1.5 K/uL (1.0-5.5); MONOCYTES # (AUTO) 0.5 K/uL (0.0-1.0); NEUTROPHILS # (AUTO) 0.1 K/uL (1.8-7.7)
[2022-01-06 15:06] LABS: ATYPICAL LYMPHOCYTES % 8 % (0-0); BAND % (MANUAL) 1 % (0-6); BASOPHILS % (MANUAL) 0 % (0-2); EOSINOPHILS % (MANUAL) 0 % (0-7); LYMPHOCYTES % (MANUAL) 65 % (20-46); MONOCYTES % (MANUAL) 22 % (0-11)
--- NOTE | 2022-01-06 19:17 | NUR ---
END SHIFT REPORT GIVEN TO KARLIE COUCH. THANK YOU
--- NOTE | 2022-01-06 19:25 | NUR ---
OPENING NOTE PT IS SEMI FOWLERS IN BED. PT IS VERY DROWSY, EASILY AROUSED. NO APPARENT DISTRESS NOTED AT THIS TIME. SAFETY AND FALL PRECAUTIONS IN PLACE WITH BED IN LOWEST POSITION. CALL LIGHT WITHIN REACH, PT EDUCATED ON HOW TO USE IT. IV FLUIDS RUNNING ORDERED
[2022-01-06] MEDS: PROPRANOLOL HCL 10 MG TABLET (INDERAL) PO SCH (21:00)
[2022-01-06] MEDS: cefTRIAXone 1 GM in D5W 50 ML IV SCH (22:37)
[2022-01-07] VITALS (8 sets, daily range): BP systolic 84–109
[2022-01-07] MEDS: metroNIDAZOLE 500 mg/NS 100 ML IV SCH ×3 (02:09→17:46)
[2022-01-07] MEDS: ALBUTEROL SULFATE 0.083% 2.5 MG/3 ML VIAL.NEB INH SCH ×5 (03:00→16:03)
[2022-01-07] MEDS: IPRATROPIUM BROM 0.5 MG/2.5 ML VIAL.NEB (ATROVENT) INH SCH ×5 (03:00→16:02)
[2022-01-07 06:56] LABS: HEMATOCRIT 22.7 % (36-54); MEAN CORPUSCULAR HEMOGLOBIN 33 pg (27-31); MEAN CORPUSCULAR HGB CONC 35 % (32-36); MEAN CORPUSCULAR VOLUME 92 fL (79.0-98.0); RED BLOOD CELL COUNT(AUTO) 2.46 MIL/uL (4.2-6.2); RED CELL DISTRIBUTION WIDTH 18.9 % (9.0-15.0); WHITE BLOOD COUNT (AUTO) 2.5 K/uL (4.8-10.8)
[2022-01-07 06:57] LABS: ALANINE AMINOTRANSFERASE 27 U/L (12-78); ALBUMIN 1.4 g/dL (3.4-4.8); AMYLASE 56 U/L (0-100); ANION GAP 12 (5-15); ASPARTATE AMINOTRANSFERASE 48 U/L (10-37); CHLORIDE 103 mmol/L (98-107); CREATININE 0.96 mg/dL (0.55-1.30); GLUCOSE 138 mg/dL (70-99); LIPASE 128 U/L (73-393); POTASSIUM 3.8 mmol/L (3.5-5.1); SODIUM SERUM 128 mmol/L (136-145); TOTAL BILIRUBIN 0.3 mg/dL (0.0-1.0); UREA NITROGEN, BLOOD 29 mg/dL (8-21)
[2022-01-07] MEDS: SPIRONOLACTONE 25 MG TABLET (ALDACTONE) PO SCH (09:00)
[2022-01-07] MEDS: PROPRANOLOL HCL 10 MG TABLET (INDERAL) PO SCH ×2 (09:00→23:01)
[2022-01-07] MEDS: BACLOFEN 10 MG TABLET PO SCH (09:00)
[2022-01-07] MEDS: GABAPENTIN 100 MG CAPSULE PO SCH ×3 (09:00→23:02)
[2022-01-07] MEDS ORDERED: PANTOPRAZOLE SODIUM 40 MG TAB PO SCH (09:00)
[2022-01-07 09:12] LABS: PLATELET COUNT (AUTO) 15 K/uL (130-430)
[2022-01-07 09:20] LABS: CALCIUM 6.2 mg/dL (8.4-11.0)
[2022-01-07] MEDS: D5/0.45 NS 1,000 ML IV SCH (09:37)
[2022-01-07] MEDS: chlordiazePOXIDE HCL 25 MG CAPSULE PO SCH (09:37)
[2022-01-07 09:47] LABS: ATYPICAL LYMPHOCYTES % 5 % (0-0); BASOPHILS % (MANUAL) 0 % (0-2); EOSINOPHILS % (MANUAL) 0 % (0-7); LYMPHOCYTES % (MANUAL) 80 % (20-46); MONOCYTES % (MANUAL) 10 % (0-11)
--- NOTE | 2022-01-07 11:08 | NUR ---
Nutrition Consult Received 01/06/22 @ 1135 d/t poor oral intake, diarrhea Nutrition Consult Received 01/07/22 @ 0623 d/t poor po intake Please refer to Nutrition F/U from 01/05/22 for details and recommendations.
[2022-01-07] MEDS: THIAMINE HCL 100 MG, MAGNESIUM SULFATE 1 GM in NS 100 ML IV SCH (12:19)
[2022-01-07] MEDS: FOLIC ACID 1 MG, MVI 10 ML in NACL 0.9% 1,000 ML IV SCH (12:20)
--- NOTE | 2022-01-07 15:28 | NUR ---
NOTES; CALLED DR. HAMPTON'S EXCHANGE , LEFT MESSAGE. ALSO CALLED DR. NGUYEN FOR FOLLOW UP FOR LAB RESULTS. CALLED DR. MALORIE LAROSE AND LINE WAS BUSY, TRIED 3X. NURSE INFORMED.
--- NOTE | 2022-01-07 16:06 | NUR ---
DR. ABURTO INFORMED AND AWARE ABOUT PLATELET RESULT 15, PATIENT HAVING TARRY STOOL, AND REPORT R/O LEUKEMIA IN PATIENT'S CHART. THANK YOU
--- NOTE | 2022-01-07 17:44 | NUR ---
ST EVALUATION COMPLETED. ST TX NOT INDICATED AT THIS TIME. RECOMMEND PO INTAKE OF PUREE/HONEY THICK LIQUID WITH 1:1 ASSISTANCE AND FULL ASPIRATION PRECAUTIONS
--- NOTE | 2022-01-07 17:54 | NUR ---
Patient heart rate in 140s-150s. Patiet denies any CP Palpitations SOB. Patient c/o gurgling sound and congestion. R.T. notified and recommend Xopenex versus Albuterol/Atrovent due to increase HR of 140s. Paged Dr. Atkins. Waiting for response. Thank you
[2022-01-07] MEDS ORDERED: levalbuterol HCL 0.63 MG/3 ML VIAL.NEB INH ONE (18:52)
--- NOTE | 2022-01-07 19:56 | NUR ---
END SHIFT REPORT GIVEN TO CHANELL GONZALEZ. THANK YOU
[2022-01-08] MEDS: metroNIDAZOLE 500 mg/NS 100 ML IV SCH ×3 (01:48→17:37)
[2022-01-08] MEDS: levalbuterol HCL 0.63 MG/3 ML VIAL.NEB INH PRN ×3 (03:29→14:12)
--- NOTE | 2022-01-08 07:30 | NUR ---
RECEIVED REPORT FROM DIGITAL MEDIA SALES CONSULTANT NURSE. PATIENT IS RESTING IN BED AND ONLY AROUSABLE TO TACTILE STIMULI OR LOUD VERBAL STIMULI. PATIENT KNOWS NAME AND WHERE HE IS, BUT SPEECH IS GARBLED AND UNABLE TO HOLD CONVERSATION. PATIENT IS ON 2L/NC AND BREATHING SYMMETRICAL. STOMACH IS SOFT AND NON DISTENDED. PATIENT HAD BOWEL MOVEMENTS THAT WERE LIQUIDY AND DARK, SAMPLE HAS BEEN SENT TO LAB LAST SHIFT REPORTED. PATIENT EYES ARE PERRLA 3MM. PATIENT IS VERY WEAK AND HAS WEAK COUGH. DIET IS MECHANICAL SOFT THICKENED LIQUIDS. LEGS AND ARMS ARE VERY WEAK. FAMILY IS AT BEDSIDE.
[2022-01-08] MEDS: PROPRANOLOL HCL 10 MG TABLET (INDERAL) PO SCH ×2 (09:00→21:00)
[2022-01-08] MEDS: GABAPENTIN 100 MG CAPSULE PO SCH (09:00)
--- NOTE | 2022-01-08 09:44 | NUR ---
PATHOLOGY REQUEST FOR BONE MARROW BIOPSY CALLED TO PATHOLOGY AND BUZZ DUPREE. PER LEIA, PATHOLOGIST WILL BE AVAILABLE 01/09/22
--- NOTE | 2022-01-08 10:25 | NUR ---
IN ROOM WITH DR. ESPANA, RECEIVED ORDERS TO HOLD CARBAMAZEPIME AND GABEPENTON. ORDERS HAVE NOT BEED DC'd IN [facility] YET. WAITING FOR CONFIRMATION FROM MALORIE.
[2022-01-08] MEDS: SPIRONOLACTONE 25 MG TABLET (ALDACTONE) PO SCH (10:56)
[2022-01-08] MEDS ORDERED: FAMOTIDINE 20 MG TABLET PO ONE (11:00)
[2022-01-08 11:20] LABS: HEPATITIS A AB, IgM Negative (Negative); HEPATITIS B SURFACE AG Negative (Negative)
[2022-01-08 11:21] LABS: AFP, TUMOR MARKER 2.1; HEPATITIS B CORE AB, IgM Negative (Negative)
[2022-01-08 11:45] LABS: HEMOGLOBIN 7.3 g/dL (14.0-18.0); MEAN CORPUSCULAR HEMOGLOBIN 32 pg (27-31); MEAN CORPUSCULAR HGB CONC 35 % (32-36); MEAN CORPUSCULAR VOLUME 92 fL (79.0-98.0); RED BLOOD CELL COUNT(AUTO) 2.27 MIL/uL (4.2-6.2); RED CELL DISTRIBUTION WIDTH 19.5 % (9.0-15.0); WHITE BLOOD COUNT (AUTO) 2.5 K/uL (4.8-10.8)
[2022-01-08 11:50] LABS: HEMATOCRIT 20.9 % (36-54); PLATELET COUNT (AUTO) 16 K/uL (130-430)
[2022-01-08 12:00] VITALS: BP_SYST 107
--- NOTE | 2022-01-08 12:00 | NUR ---
RECEIVED CRITICAL VALUES OF HCT AND AND PLATLET. PAGED DR. ESPANA
[2022-01-08 12:01] LABS: ATYPICAL LYMPHOCYTES % 2 % (0-0); BASOPHILS % (MANUAL) 0 % (0-2); BLASTS, MANUAL % 3 % (0-0); EOSINOPHILS % (MANUAL) 0 % (0-7); LYMPHOCYTES % (MANUAL) 43 % (20-46); MONOCYTES % (MANUAL) 43 % (0-11)
[2022-01-08 12:02] LABS: WBC MORPHOLOGY TOXIC VACUOLATION
[2022-01-08] MEDS: FOLIC ACID 1 MG, MVI 10 ML in NACL 0.9% 1,000 ML IV SCH (13:20)
[2022-01-08] MEDS: THIAMINE HCL 100 MG, MAGNESIUM SULFATE 1 GM in NS 100 ML IV SCH (13:20)
[2022-01-08 15:13] VITALS: BP_SYST 121
--- NOTE | 2022-01-08 15:40 | NUR ---
PAGED DR. MENDOZA COVERING FOR MALORIE FOR CRITICAL LABS REPORTING
[2022-01-08 16:00] VITALS: BP_SYST 120
--- NOTE | 2022-01-08 18:09 | NUR ---
PT EVAL. PATIENT IS VERY WEAK AND WILL NEED TOTAL ASSITANCE UNTIL PATIENT GAINS STRENGTH AND WAKES UP MORE.
--- NOTE | 2022-01-08 19:42 | NUR ---
bONE MARROW BIOSY LATE ENTRY DUE TO PT CARE. 12:00- PATHOLOGIST REQUESTED RADIOLOGY TO DO BONE MARROW BIOPSY, SW WITH SAMMIE WHO STATED THAT RADIOLOGY DO NOT DO BONE MARROW BIOPSY. PATHOLOGY NOTIFIED
[2022-01-08 20:00] VITALS: BP_SYST 108
[2022-01-09 01:12] VITALS: BP_SYST 98
[2022-01-09] MEDS: metroNIDAZOLE 500 mg/NS 100 ML IV SCH ×3 (02:12→17:41)
[2022-01-09] MEDS: D5/0.45 NS 1,000 ML IV SCH (02:13)
[2022-01-09] MEDS: PROPRANOLOL HCL 10 MG TABLET (INDERAL) PO SCH ×3 (09:00→21:00)
[2022-01-09] MEDS ORDERED: FAMOTIDINE 20 MG TABLET PO SCH (09:00)
[2022-01-09] MEDS: SPIRONOLACTONE 25 MG TABLET (ALDACTONE) PO SCH ×2 (09:00→10:00)
--- NOTE | 2022-01-09 09:29 | NUR ---
Onco/Dorian Md DR NGUYEN, asked me to follow up the bone marrow biopsy. Dr NGUYEN wants this biopsy done today. Spoke to
--- NOTE | 2022-01-09 10:14 | NUR ---
I WAS ASKED BY PATHOLOGIST DR BHAVNA MORRIS TO CALL DR NGUYEN.
[2022-01-09 12:30] VITALS: BP_SYST 92
[2022-01-09] MEDS: FOLIC ACID 1 MG, MVI 10 ML in NACL 0.9% 1,000 ML IV SCH (13:03)
[2022-01-09] MEDS: THIAMINE HCL 100 MG, MAGNESIUM SULFATE 1 GM in NS 100 ML IV SCH (13:03)
[2022-01-09] MEDS ORDERED: ALBUMIN HUMAN 25% 100 ML IV ONE (16:00)
--- NOTE | 2022-01-09 16:13 | NUR ---
pt lethargic confused,BP decreased to 83/49,rechecked BP 83/60,desat 88% on 3L/NC,applied non rebreath mask on 10L,sat up to 92%,tachycardia hr 120. called and notified of pt condition,order received to give albumin 100 IV x1 dose and called as per requests called and notified,give normal saline bolus 250ml once and increased IVF to 100 ml per hr transfer to ICU per order. visited at bedside and notified of pt transfer to ICU d/t hypotention and desat. O2.
[2022-01-09] MEDS ORDERED: NS 250 ML IV ONE (16:15)
[2022-01-09 16:31] VITALS: BP_SYST 83
--- NOTE | 2022-01-09 16:38 | NUR ---
Attempted PT visit, pt is not stable and not cleared for PT, per RN. Will attempt PT visit again tomorrow.
[2022-01-09 17:00] VITALS: BP_SYST 91
[2022-01-09 18:00] VITALS: BP_SYST 88
[2022-01-09 20:00] VITALS: BP_SYST 96
--- NOTE | 2022-01-09 21:45 | NUR ---
PATIENT TRANSFER TO ICU PATIENT TRANSFERRED TO ICU AT APPROX. 21:30 IN A BED ACCOMPANIED BY RN AND CHARGE NURSE. REPORT GIVEN TO LISA/ICU NURSE. PATIENT REMAINS LETHARGIC BUT AROUSABLE AT THIS TIME. WILL CONTINUE TREATMENT AND MONITORING OF PATIENT.
--- NOTE | 2022-01-09 22:55 | NUR ---
CALLED AND LEFT MESSAGE TO RYLEE MURRAY TO CALL BACK TO GIVE HER AN UPDATE. PT TRANSFERRED TO ICU AROUND [id number]
[2022-01-10] VITALS (56 sets, daily range): BP systolic 46–127
--- NOTE | 2022-01-10 00:05 | NUR ---
CALLED DR. ARRIETA I SPOKE TO VONDA LAROSE
--- NOTE | 2022-01-10 00:38 | NUR ---
SECOND CALLED FOR DR. ARRIETA I SPOKE TO JOSELO
--- NOTE | 2022-01-10 01:25 | NUR ---
PAGED STEPHANIE BERRY I SPOKE TO MAIA LAROSE
[2022-01-10] MEDS ORDERED: NOREPINEPHRINE 4 MG/4 ML VIAL IV ONE ×4 (01:28→07:40)
[2022-01-10] MEDS ORDERED: NACL 0.9% 1,000 ML IV ONE (01:45)
--- NOTE | 2022-01-10 02:16 | NUR ---
SECOND PAGED FOR DR. BROWN I SPOKE TO MAIA LAROSE
[2022-01-10] MEDS ORDERED: ZOSYN (PIPERACILLIN/TAZO) 3.375 GM in DEX-ISO (50ml) IV SCH (02:30)
--- NOTE | 2022-01-10 03:36 | NUR ---
PAGED DR. BROWN I SPOKE TO PIA LAROSE
[2022-01-10] MEDS: NOREPINEPHRINE BITARTRATE 4 MG in NS 246 ML IV PRN ×5 (04:29→11:21)
[2022-01-10] MEDS: LORazepam 2 MG/ML VIAL IVP PRN ×2 (05:38→08:17)
[2022-01-10 05:55] LABS: MEAN CORPUSCULAR HEMOGLOBIN 30 pg (27-31); MEAN CORPUSCULAR HGB CONC 34 % (32-36); MEAN CORPUSCULAR VOLUME 89 fL (79.0-98.0); RED CELL DISTRIBUTION WIDTH 19.7 % (9.0-15.0)
[2022-01-10 06:07] LABS: CREATININE 1.09 mg/dL (0.55-1.30); GLUCOSE 94 mg/dL (70-99); SODIUM SERUM 146 mmol/L (136-145); UREA NITROGEN, BLOOD 27 mg/dL (8-21)
[2022-01-10 07:02] LABS: ANION GAP 15 (5-15); CHLORIDE 119 mmol/L (98-107)
--- NOTE | 2022-01-10 07:05 | NUR ---
Received report from assistant shift supervisor RN, and assumed patient care.
[2022-01-10 08:05] LABS: CALCIUM 5.9 mg/dL (8.4-11.0); POTASSIUM 2.7 mmol/L (3.5-5.1)
--- NOTE | 2022-01-10 08:05 | NUR ---
Received critical lab result of K: 2.7, and Ca: 5.9, will page Dr. Eduardo and bellows charger assembler (Ibis) is aware of the situation. No other orders noted at the moment.
--- NOTE | 2022-01-10 08:15 | NUR ---
Spoke to Dr. Eduardo about patient's most current situation of elevated HR in the 120s, and patient breathing really fast in the 30-40s with current bipap settings. MD is aware of patient being weak and still able to remove bipap if needed, but will continue to monitor if patient is not able to remove mask throughout the shift and is on aspiration precaution. MD is aware of critical labs of K: 2.7, and calcium: 5.9, MD ordered medications and will wait for verification. MD is OK with giving ativan and morphine now to help alleviate patient's pain and agitation, patient is saturating in the 100% at the moment, and will reinforce if needed throughout the shift. MD is aware of current ABG levels, no additional orders noted at the moment and will reinforce if needed throughout the shift.
[2022-01-10] MEDS ORDERED: MORPHINE 2 MG/ML INJ. SYRINGE IVP PRN (08:30)
[2022-01-10] MEDS: FAMOTIDINE PF 20 MG/2 ML VIAL IVP SCH ×2 (08:45→22:50)
[2022-01-10] MEDS: SPIRONOLACTONE 25 MG TABLET (ALDACTONE) PO SCH (09:00)
[2022-01-10] MEDS: PROPRANOLOL HCL 10 MG TABLET (INDERAL) PO SCH (09:00)
--- NOTE | 2022-01-10 09:00 | NUR ---
Family at bedside, provided nursing updates had no further questions at the end of the conversation, and will wait for Dr. Atkins to round on patient. Dr. Atkins at bedside, no additional orders noted at the moment. Will reinforce if needed throughout the shift.
[2022-01-10] MEDS ORDERED: POTASSIUM CHLORIDE 40 MEQ, LIDOCAINE JECT 2% PF 100 MG 50 MG in NS 250 ML IV ONE (09:30)
[2022-01-10] MEDS ORDERED: CALCIUM GLUCONATE 2 GM in NS 100 ML IV ONE (09:30)
--- NOTE | 2022-01-10 09:30 | NUR ---
Dr. Atkins at bedside, primary RN present during the conversation with patient's family. Stating about the patient's poor prognosis, MD had thorough conversation, patient had no further questions noted at the moment and will reinforce if needed throughout the shift. MD is aware of patient's NPO status and is OK with holding PO meds.
[2022-01-10 09:35] LABS: RED BLOOD CELL COUNT(AUTO) 1.88 MIL/uL (4.2-6.2)
[2022-01-10 09:38] LABS: HEMATOCRIT 16.8 % (36-54); HEMOGLOBIN 5.7 g/dL (14.0-18.0); PLATELET COUNT (AUTO) 19 K/uL (130-430); WHITE BLOOD COUNT (AUTO) 1.8 K/uL (4.8-10.8)
--- NOTE | 2022-01-10 09:45 | NUR ---
Dr. Eduardo is at bedside with primary RN, explained to family the need and the importance of intubation and family agrees. MD provided detailed information about the next steps in intubation, and the need to tranfuse blood, witnessed consent and had the paper works process MUKESH, family had no further questions noted at the moment. Will wait for MD's further instructions regarding intubation.
--- NOTE | 2022-01-10 09:54 | NUR ---
PT services are on hold at this time due to transfer into ICU last night.
[2022-01-10] MEDS: metroNIDAZOLE 500 mg/NS 100 ML IV SCH ×2 (10:00→17:34)
--- NOTE | 2022-01-10 10:00 | NUR ---
Dr. Eduardo is at bedside, medications ready to give per MD's order (please see emar for further details on dosages), no additional orders noted at the moment. 1005: Patient was successfully intubated without complications, per MD OK to start patient on propofol gtt, and place martinez catheter, and PICC line order. MD is aware of levophed gtt running through peripheral line, IV is CDI and no signs of infiltration noted at the moment. Family is made aware of the intubation.
[2022-01-10] MEDS ORDERED: ROCURONIUM BROMIDE 10 MG/ML (ZEMURON) IV ONE (10:05)
[2022-01-10] MEDS ORDERED: ETOMIDATE 20 MG/ 10 ML VIAL (AMIDATE) IVP ONE (10:05)
[2022-01-10] MEDS ORDERED: PROPOFOL DRIP 100 ML IV ONE (10:21)
--- NOTE | 2022-01-10 10:30 | NUR ---
Dr. Cruz at bedside, is aware of patient's most recent CBC levels, and ordered to change antibiotics (please see emar for further details), MD said to place condom catheter rather than a martinez due to increase risk of infection and is less invasive. Will wait for orders to be verified on [employer], no addtional orders noted at the moment. Will reinforce if needed throughout the shift.
--- NOTE | 2022-01-10 10:32 | NUR ---
1005 assisted in bagging and intubating pt. placed on vent settings ac20 500+5. 7.5@24cm ll. co2 color change, bilat yovana heard, ett secure and patent, bulmaro bag at bedside. will cont to monitor. Addendum: 01/10/22 at 1035 by Aimee Celeste RT Amended: Links added.
[2022-01-10] MEDS ORDERED: PROPOFOL DRIP 100 ML IV PRN (10:45)
[2022-01-10 11:44] LABS: INR 2.1 (0.80-1.20)
--- NOTE | 2022-01-10 12:00 | NUR ---
Called central supply for condom catheter, and still waiting for delivery of condom catheter. Dr. Eduardo is aware of not being able to measure strict I/Os, MD is aware. No additional orders noted at the moment.
[2022-01-10 12:18] LABS: PROTHROMBIN TIME 20.8 SECS (9.5-12.5)
[2022-01-10] MEDS: FOLIC ACID 1 MG, MVI 10 ML in NACL 0.9% 1,000 ML IV SCH (12:34)
[2022-01-10] MEDS: THIAMINE HCL 100 MG, MAGNESIUM SULFATE 1 GM in NS 100 ML IV SCH (12:35)
--- NOTE | 2022-01-10 12:55 | NUR ---
1255 titratred fio2 to .50. pt tolerating well. Addendum: 01/10/22 at 1633 by Aimee Celeste RT Amended: Links added.
--- NOTE | 2022-01-10 13:27 | NUR ---
Nutrition F/U Admitting Diagnosis Electrolyte imbalance Reviewed Pertinent Medical/Surgical Hx Medical Record Patient Medical History Comment: PMH: alcohol-induced liver Dz, alcohol abuse, and HTN per physician notes Pt also found w/ diarrhea, hyponatremia, ethanol dependence, and pancytopenia per physician notes Per physician notes 01/10: pt also found w/ sepsis, acute hypoxic respiratory failure, r/o acute leukopenia, unstable for bone marrow Bx at this time,and metabolic encephalopathy SARS-CoV-2 Ag (Rapid) Negative 12/31 Subjective Information: RD attended ICU rounds this morning. Primary RN reported that pt is not conservational, had been on BiPAP, -- during rounds, costume shop manager rounded/assessed pt, and intubation was needed; RN also reported that pt will need 1 unit PRBC d/t low H/H. Per EMR review, pulmo notes indicated NGT for nutrition once Plt count is stable -- clinical condition rapidly deteriorated overnight and pt was transferred to ICU overnight; pancytopenia w/ low Hbg and Plt Count; possible plan for condom catheter placement; LBM x3 01/08; Jeuss scale: 13 w/ dry scab to posterior buttocks. Pt is not meeting nutritional needs. Current Diet Order/Nutrition Support: NPO x2 days Patient/Significant Other Unable To Verbalize Education Provided Not Indicated Pertinent Medications: propofol at 2 ml/hr (53 kcal/day), morphine, pepcid, banana bag, D5%NS at 60 ml/hr (245 kcal/day) Pertinent Labs: WBC 1.8L, H/H 5.7 L/16.8 L, Na 146 H, K 2.7 L, BUN 27 H, Ca 5.9 L Height (Feet) 5 feet Height (Inches) 5.00 inches Weight (Pounds) 147 pounds -- stable since 01/02 Patient Weight 66.678 kg Body Mass Index 24.46 kg/m2 %IBW 108 [place]/Adjusted Body Weight 136#/61.8 kg Weight Status Underweight Food Allergies No Current % PO Negligible since 01/06 NEW Estimated Energy Expenditure (kcals/day) 1611 (PSU d/t critical illness, newly intubated; Ve: 10.7, Tmax: 37.1'C) NEW Estimated Protein Required (g/day) 87-133 (1.3-2 gm/kg CBW d/t sepsis, newly intubated, critical illness) NEW Estimated Fluid Required (l/day) 1.6 (1 ml/kcal/day for maintenance) Problem/Etiology/Signs/Symptoms *MODIFIED* Suboptimal nutritional intakes R/T suspected lack of appetite AEB negligible PO intakes records. *Ongoing Increased nutritional needs R/T metabolic demands AEB estimated nutritional requirements for critical illness/sepsis. *New Expected Outcomes/Goals *MODIFIED* - Monitor appetite and PO intakes w/ goal of pt meeting >80% of estimated nutritional needs, labs trending WNL, normal GI function, and skin integrity/wt maintenance Dietitian Recommendations * Consider NGT placement within 1-2 days and initiate EN support Vital AF 1.2 at 55 (goal rate), Free Water Flush: 150 ml Q6h Provides: 1584 kcal/day, 99 gm protein/day, and 1671 ml free water/day Meets: 98% of estimated caloric needs and 114% of lower end of estimated protein needs Follow Up High Risk: F/U in 2-3 days Addendum: 01/10/22 at [address] CORRECTION: Dietitian Recommendations * Consider NGT placement within 1-2 days and initiate EN support if/when medically appropriate Vital AF 1.2 at 55 (goal rate), Free Water Flush: 150 ml Q6h Provides: 1584 kcal/day, 99 gm protein/day, and 1671 ml free water/day Meets: 98% of estimated caloric needs and 114% of lower end of estimated protein needs
[2022-01-10] MEDS ORDERED: NOREPINEPHRINE BITARTRATE 8 MG in NS 242 ML IV PRN (13:30)
--- NOTE | 2022-01-10 13:40 | NUR ---
Dietitian Recommendations * Consider NGT placement within 1-2 days and initiate EN support if/when medically appropriate Vital AF 1.2 at 55 (goal rate), Free Water Flush: 150 ml Q6h Provides: 1584 kcal/day, 99 gm protein/day, and 1671 ml free water/day Meets: 98% of estimated caloric needs and 114% of lower end of estimated protein needs LP, RD Please refer to Nutrition F/U for details.
--- NOTE | 2022-01-10 14:05 | NUR ---
Per MD's order, blood transfusion of PRBC started, verified with auditor in charge ([employer]) at bedside. Please see blood transfusion sheet for further details, no complications noted at the moment. Family is informed about the situation, no further questions noted at the moment. Will reinforce if needed throughout the shift.
[2022-01-10] MEDS: D5/0.45 NS 1,000 ML IV SCH (14:29)
[2022-01-10] MEDS: MEROPENEM 1 GM in NS 100 ML IV SCH ×2 (14:35→22:49)
--- NOTE | 2022-01-10 14:51 | NUR ---
Called Dr. Eduardo and is informed about SBP and MAP less than goal (SBP: 75/40s & MAP: 55s) MD is ok with another pressors gtt. Will wait for orders to be verified.
[2022-01-10] MEDS ORDERED: VASOPRESSIN 100 UNITS in D5W 45 ML IV PRN (15:00)
--- NOTE | 2022-01-10 15:00 | NUR ---
Patient's SBP and MAP was running on the lower end, Dr. Eduardo is aware and made changes on the pressor medications regarding dosages (please see emar for further details), patient's family is aware of the situation and has no questions noted at the moment. [employer] school math tutor (Ibis) is aware of patient's MAP below goal, and constantly titrating medications to obtain goal and to obtain another pressor to meet goal of MAP >65. Placed patient on reverse Trendelenburg to help with blood flow, and will continue to monitor.
[2022-01-10] MEDS ORDERED: NOREPINEPHRINE BITARTRATE 16 MG in NS 234 ML IV PRN (15:30)
[2022-01-10 15:54] LABS: CORRECTED WHITE BLOOD COUNT 1.1 K/uL (4.5-11.0)
[2022-01-10 15:55] LABS: ATYPICAL LYMPHOCYTES % 14 % (0-0); BAND % (MANUAL) 2 % (0-6); BASOPHILS % (MANUAL) 0 % (0-2); BLASTS, MANUAL % 33 % (0-0); EOSINOPHILS % (MANUAL) 0 % (0-7); LYMPHOCYTES % (MANUAL) 38 % (20-46); MONOCYTES % (MANUAL) 4 % (0-11)
[2022-01-10] MEDS: SODIUM BICARBONATE 8.4% JECT 150 MEQ in D5W 1,000 ML IV SCH (15:59)
--- NOTE | 2022-01-10 16:00 | NUR ---
Called central supply for condom catheter, and still waiting for delivery of condom catheter. Dr. Eduardo is aware of not being able to measure strict I/Os, MD is aware. No additional orders noted at the moment will continue to monitor throughout the shift.
[2022-01-10] MEDS: PHENYLEPHRINE HCL 100 MG in NS 240 ML IV PRN (16:50)
--- NOTE | 2022-01-10 17:15 | NUR ---
Patient's family at bedside, provided nursing updates and had no questions noted at the moment. Will reinforce if needed throughout the shift.
--- NOTE | 2022-01-10 19:11 | NUR ---
Called Dr. Eduardo, spoke to MD on the phone and informed him about the current situation with patient's SBP and MAP below goal and is currently MAXED out on ALL pressors. MD is aware that patient is still below goal, and will not provide a fourth pressor per Dr. Eduardo's statement. instructional technology instructor ([employer]bis) is aware of the situation, and per MD we will not escalade the medication pressor. MD is aware of patient's instability of blood pressure. No additional orders noted at the moment. Will call family to inform about patient's situation to be at bedside if possible.
[2022-01-11] VITALS (35 sets, daily range): BP systolic 85–108
[2022-01-11] MEDS: D5/0.45 NS 1,000 ML IV SCH (00:29)
[2022-01-11] MEDS: metroNIDAZOLE 500 mg/NS 100 ML IV SCH ×2 (03:56→10:42)
[2022-01-11] MEDS: SODIUM BICARBONATE 8.4% JECT 150 MEQ in D5W 1,000 ML IV SCH (03:58)
[2022-01-11] MEDS ORDERED: NOREPINEPHRINE 4 MG/4 ML VIAL IV ONE ×2 (05:43→10:58)
[2022-01-11 06:10] LABS: HEMATOCRIT 22.3 % (36-54); MEAN CORPUSCULAR HEMOGLOBIN 30 pg (27-31); MEAN CORPUSCULAR HGB CONC 32 % (32-36); MEAN CORPUSCULAR VOLUME 96 fL (79.0-98.0); RED BLOOD CELL COUNT(AUTO) 2.33 MIL/uL (4.2-6.2); RED CELL DISTRIBUTION WIDTH 18.6 % (9.0-15.0)
[2022-01-11 06:44] LABS: ALANINE AMINOTRANSFERASE 251 U/L (12-78); ALBUMIN 0.9 g/dL (3.4-4.8); ANION GAP 22 (5-15); ASPARTATE AMINOTRANSFERASE 986 U/L (10-37); CHLORIDE 117 mmol/L (98-107); CREATININE 1.73 mg/dL (0.55-1.30); GLUCOSE 91 mg/dL (70-99); SODIUM SERUM 145 mmol/L (136-145); TOTAL BILIRUBIN 2.9 mg/dL (0.0-1.0); UREA NITROGEN, BLOOD 42 mg/dL (8-21)
[2022-01-11] MEDS: MEROPENEM 1 GM in NS 100 ML IV SCH (06:55)
[2022-01-11 07:03] LABS: PLATELET COUNT (AUTO) 7 K/uL (130-430); WHITE BLOOD COUNT (AUTO) 1.9 K/uL (4.8-10.8)
[2022-01-11 07:52] LABS: CALCIUM 5.3 mg/dL (8.4-11.0)
--- NOTE | 2022-01-11 08:30 | NUR ---
Assessed patient at bedside. Patient is into multiple pressors at maxed out rates. Vital signs stable. Patient on ventillator with prescribed settings. Absence of gag and cough reflexes noted. Informed Dr Eduardo who was also present at this time.
[2022-01-11] MEDS: SPIRONOLACTONE 25 MG TABLET (ALDACTONE) PO SCH (09:00)
[2022-01-11 09:32] LABS: CORRECTED WHITE BLOOD COUNT 1.1 K/uL (4.5-11.0)
[2022-01-11 09:33] LABS: ATYPICAL LYMPHOCYTES % 14 % (0-0); BASOPHILS % (MANUAL) 0 % (0-2); EOSINOPHILS % (MANUAL) 0 % (0-7); MONOCYTES % (MANUAL) 0 % (0-11)
[2022-01-11 09:34] LABS: BLASTS, MANUAL % 16 % (0-0); LYMPHOCYTES % (MANUAL) 64 % (20-46)
[2022-01-11] MEDS: THIAMINE HCL 100 MG, MAGNESIUM SULFATE 1 GM in NS 100 ML IV SCH (12:45)
[2022-01-11] MEDS: PHENYLEPHRINE HCL 100 MG in NS 240 ML IV PRN (12:49)
--- NOTE | 2022-01-11 14:15 | NUR ---
Dr Gomez at bedside to pronounce . Asystole on the monitor and no palpable pulse noted.
[2022-01-11] MEDS ORDERED: DAPTOmycin 400 MG in NS 50 ML IV SCH (15:00)
== END 2022-01-11 17:43 | DRG 871 ==
LOC: SED 01:18 → STU 21:20 → SIC 01-09 21:44
PROVIDERS: ADMIT Internal Medicine Hospice and Palliative Medicine; ATTEND Internal Medicine Hospice and Palliative Medicine
PROC: 30233R1 Transfusion of Nonautologous Platelets into Peripheral Vein, Percutaneous Approach (ICD-10-PCS; principal; 2022-01-10)
PROC: 30233N1 Transfusion of Nonautologous Red Blood Cells into Peripheral Vein, Percutaneous Approach (ICD-10-PCS; 2022-01-10)
PROC: 5A09357 Assistance with Respiratory Ventilation, Less than 24 Consecutive Hours, Continuous Positive Airway Pressure (ICD-10-PCS; 2022-01-10)
PROC: 0BH17EZ Insertion of Endotracheal Airway into Trachea, Via Natural or Artificial Opening (ICD-10-PCS; 2022-01-10)
PROC: 5A1935Z Respiratory Ventilation, Less than 24 Consecutive Hours (ICD-10-PCS; 2022-01-10)
DX: A41.9 Sepsis, unspecified organism (principal); G93.41 Metabolic encephalopathy; J96.01 Acute respiratory failure with hypoxia; K72.00 Acute and subacute hepatic failure without coma; R65.21 Severe sepsis with septic shock; E87.1 Hypo-osmolality and hyponatremia; D61.818 Other pancytopenia; M48.54XA Collapsed vertebra, not elsewhere classified, thoracic region, initial encounter for fracture; C95.00 Acute leukemia of unspecified cell type not having achieved remission; N19 Unspecified kidney failure; E87.6 Hypokalemia; M19.90 Unspecified osteoarthritis, unspecified site; K74.60 Unspecified cirrhosis of liver; K70.9 Alcoholic liver disease, unspecified; K52.9 Noninfective gastroenteritis and colitis, unspecified; I10 Essential (primary) hypertension; E11.9 Type 2 diabetes mellitus without complications; K21.9 Gastro-esophageal reflux disease without esophagitis; M47.9 Spondylosis, unspecified; M54.16 Radiculopathy, lumbar region; Z80.9 Family history of malignant neoplasm, unspecified; Z79.899 Other long term (current) drug therapy
CPT/HCPCS: 36415; 36600; 71045; 73502; 73560-TC; 76376; 76700-TC; 80048; 80053; 80074; 81000; 82105; 82140; 82150; 82247; 82248; 82272; 82607; 82728; 82746; 82803-TC; 83540; 83550; 83605; 83690; 83880; 84132; 84443; 84550; 85007; 85025; 85027; 85044; 85610-TC; 85730-TC; 86886; 86900; 86901; 86920; 87040; 87081; 87177; 89055; 92610-GN; 93005; 93306; 94002; 94003; 94640; 94660; 94760; 96361; 96365; 96367; 96375; 99285; G0378; J0610; J0696; J0780; J0878; J2060; J2185; J2270; J2370; J2543; J2704; J3411; J3475; J3480; J3490; J7030; J7050; J7060; J7613; J7614; P9021; P9034